=== PATIENT | female | born 1945 | race Caucasian/White ===

== ENCOUNTER 2022-09-27 08:40 | Inpatient (IN) | payer OTHER ==
[2022-09-27] MEDS ORDERED: ACETAMINOPHEN 1000 MG/100 ML BAG IVPB ONE (09:40)
[2022-09-27] MEDS ORDERED: ONDANSETRON 4 MG/2 ML VIAL IVPUSH ONE ×2 (09:41→21:06)
[2022-09-27] MEDS ORDERED: LACTATED RINGERS SOLUTION 1000 ML INFUS.BAG IV ONE (09:46)
[2022-09-27] MEDS ORDERED: ACETAMINOPHEN INJECTION 100 ML IVPB ONE (10:02)
[2022-09-27] MEDS ORDERED: ONDANSETRON 4 MG/2 ML VIAL ONE (10:02)
[2022-09-27 11:09] LABS: BASO % 0.4 % (0-2.0); EOS % 0.2 % (0-4.5); HEMATOCRIT 39.9 % (32.4-45.2); HEMOGLOBIN 13.5 GM/dL (10.7-15.3); LYMPH % 21.9 % (8-40); MCH 28.7 pg (25.7-33.7); MCHC 33.8 g/dl (32.0-36.0); MEAN CELL VOLUME 84.8 fl (80-96); MEAN PLT VOLUME 10.1 fl (7.5-11.1); MONO % 4.2 % (3.8-10.2); NEUT % 73.3 % (42.8-82.8); PLATELET COUNT 204 10^3/uL (134-434); RBC 4.71 M/mm3 (3.60-5.2); RDW 16.1 % (11.6-15.6); WHITE BLOOD COUNT 8.9 K/mm3 (4.0-10.0)
[2022-09-27 11:31] LABS: POTASSIUM 4.5 mmol/L (3.5-5.1)
[2022-09-27 11:33] LABS: ALBUMIN 3.4 g/dl (3.4-5.0); BLOOD UREA NITROGEN 14.3 mg/dL (7-18); CALCIUM 10.3 mg/dL (8.5-10.1); MAGNESIUM 1.8 mg/dL (1.8-2.4)
[2022-09-27 11:37] LABS: BILIRUBIN,TOTAL 0.5 mg/dL (0.2-1); CREATININE 0.9 mg/dL (0.55-1.3); PHOSPHOROUS 4.2 mg/dL (2.5-4.9); TOT PROT 7.2 g/dl (6.4-8.2)
[2022-09-27 13:16] LABS: EPI CELLS >36 /uL (0-25.1); HYALINE CASTS 1 /uL (0-3.1); PH,URINE 5.5 (5.0-8.0); URINE APPEARANCE CLOUDY; URINE BACTERIA 646 /uL (0-1359); URINE BILIRUBIN NEGATIVE (NEGATIVE); URINE COLOR YELLOW; URINE GLUCOSE (UA) 3+ (NEGATIVE); URINE KETONE TRACE (NEGATIVE); URINE LEUK ESTERASE 2+ (NEGATIVE); URINE NITRITE NEGATIVE (NEGATIVE); URINE PROTEIN TRACE (NEGATIVE); URINE UROBILINOGEN 0.2 mg/dL (0.2-1.0); URINE WBC 2659 /uL (0-25.8)
[2022-09-27] MEDS ORDERED: CEFTRIAXONE 1,000 MG in DEXTROSE 5%-WATER - 50 ML IVPB ONE (13:51)
[2022-09-27] MEDS ORDERED: CEFTRIAXONE 1 GM/50 ML BAG ONE (14:03)
[2022-09-27 20:38] VITALS: BMI 25.8
[2022-09-27] MEDS: APIXABAN 5 MG TABLET PO SCH (21:10)
[2022-09-27] MEDS: INSULIN SLIDING SCALE (NOVOLOG) 1 VIAL SQ SCH (21:16)
[2022-09-27] MEDS ORDERED: HEPARIN NA (PORCINE) 5,000 UNITS/ML 1ML VIAL SQ SCH (22:00)
[2022-09-27] MEDS ORDERED: ATORVASTATIN CA 20 MG TABLET (FP) PO SCH (22:00)
[2022-09-28] MEDS: INSULIN SLIDING SCALE (NOVOLOG) 1 VIAL SQ SCH ×4 (06:17→21:24)
[2022-09-28 08:04] LABS: BASO % 0.3 % (0-2.0); EOS % 0.8 % (0-4.5); HEMATOCRIT 37.1 % (32.4-45.2); HEMOGLOBIN 12.5 GM/dL (10.7-15.3); LYMPH % 36.2 % (8-40); MCH 28.5 pg (25.7-33.7); MCHC 33.7 g/dl (32.0-36.0); MEAN CELL VOLUME 84.7 fl (80-96); MEAN PLT VOLUME 9.7 fl (7.5-11.1); MONO % 5.8 % (3.8-10.2); NEUT % 56.9 % (42.8-82.8); PLATELET COUNT 193 10^3/uL (134-434); RBC 4.38 M/mm3 (3.60-5.2); RDW 15.5 % (11.6-15.6); WHITE BLOOD COUNT 9.1 K/mm3 (4.0-10.0)
[2022-09-28 08:14] LABS: POTASSIUM 4.2 mmol/L (3.5-5.1)
[2022-09-28 08:24] LABS: BILIRUBIN,TOTAL 0.6 mg/dL (0.2-1)
[2022-09-28 08:27] LABS: ALBUMIN 2.9 g/dl (3.4-5.0); BLOOD UREA NITROGEN 15.1 mg/dL (7-18); CREATININE 0.9 mg/dL (0.55-1.3)
[2022-09-28 08:28] LABS: CALCIUM 9.5 mg/dL (8.5-10.1); MAGNESIUM 1.9 mg/dL (1.8-2.4)
[2022-09-28] MEDS: RAMIPRIL 5 MG CAPSULE PO SCH (09:19)
[2022-09-28] MEDS: CEFTRIAXONE 1 GM in DEXTROSE 5%-WATER - 50 ML IVPB SCH (09:19)
[2022-09-28] MEDS: APIXABAN 5 MG TABLET PO SCH ×2 (09:19→21:17)
[2022-09-28] MEDS ORDERED: metoPROLOL SUCCINATE 25 MG TAB.SR.24H (FP) PO SCH ×3 (10:00→18:15)
[2022-09-28] MEDS ORDERED: INSULIN (NOVOLOG) ASPART 100 UNITS/ML 10ML VIAL ONE ×2 (12:12→21:23)
[2022-09-28] MEDS ORDERED: ONDANSETRON 4 MG/2 ML VIAL IVPUSH ONE (18:01)
[2022-09-28] MEDS ORDERED: DIGOXIN 0.25 MG TABLET PO ONE (18:16)
[2022-09-28] MEDS: ASPIRIN 81 MG CHEWABLE TABLETS PO SCH (20:35)
[2022-09-28] MEDS: ATORVASTATIN CA 40 MG TABLET (FP) PO SCH (21:18)
[2022-09-29] MEDS: INSULIN SLIDING SCALE (NOVOLOG) 1 VIAL SQ SCH ×5 (06:03→21:43)
[2022-09-29] MEDS ORDERED: INSULIN (NOVOLOG) ASPART 100 UNITS/ML 10ML VIAL ONE ×2 (06:25→21:11)
[2022-09-29] MEDS: RAMIPRIL 5 MG CAPSULE PO SCH (09:06)
[2022-09-29] MEDS: ASPIRIN 81 MG CHEWABLE TABLETS PO SCH (09:06)
[2022-09-29] MEDS: APIXABAN 5 MG TABLET PO SCH ×2 (09:06→21:43)
[2022-09-29] MEDS: METOPROLOL SUCCINATE 50 MG, METOPROLOL SUCCINATE 25 MG PO SCH (09:07)
[2022-09-29] MEDS: CEFTRIAXONE 1 GM in DEXTROSE 5%-WATER - 50 ML IVPB SCH (09:07)
[2022-09-29] MEDS: ATORVASTATIN CA 40 MG TABLET (FP) PO SCH (21:43)
[2022-09-30] MEDS ORDERED: INSULIN (NOVOLOG) ASPART 100 UNITS/ML 10ML VIAL ONE ×2 (06:13→21:42)
[2022-09-30] MEDS: INSULIN SLIDING SCALE (NOVOLOG) 1 VIAL SQ SCH ×4 (06:17→21:44)
[2022-09-30] MEDS ORDERED: PATIENT'S OWN MEDICATION (NON-FORMULARY) (Sitagliptin Phos/Metformin Hcl [Janumet 50-1,000 PO SCH (09:00)
[2022-09-30] MEDS: METOPROLOL SUCCINATE 50 MG, METOPROLOL SUCCINATE 25 MG PO SCH (09:06)
[2022-09-30] MEDS: RAMIPRIL 5 MG CAPSULE PO SCH (09:06)
[2022-09-30] MEDS: APIXABAN 5 MG TABLET PO SCH ×2 (09:06→21:44)
[2022-09-30] MEDS: ASPIRIN 81 MG CHEWABLE TABLETS PO SCH (09:06)
[2022-09-30] MEDS: CEFTRIAXONE 1 GM in DEXTROSE 5%-WATER - 50 ML IVPB SCH (09:06)
[2022-09-30] MEDS ORDERED: LISINOPRIL 5 MG TABLET PO SCH ×2 (10:00)
[2022-09-30] MEDS ORDERED: PATIENT'S OWN MEDICATION (NON-FORMULARY) (Dapagliflozin Propanediol 10 MG Tablet) PO SCH (10:00)
[2022-09-30] MEDS: AMOX TR/POT CLAV 500MG/125MG TABLETS (FP) PO SCH (17:15)
[2022-09-30] MEDS: ATORVASTATIN CA 40 MG TABLET (FP) PO SCH (21:44)
[2022-10-01 02:55] VITALS: RESP 18
[2022-10-01] MEDS ORDERED: INSULIN (NOVOLOG) ASPART 100 UNITS/ML 10ML VIAL ONE ×2 (06:10→11:45)
[2022-10-01] MEDS: INSULIN SLIDING SCALE (NOVOLOG) 1 VIAL SQ SCH ×2 (06:11→11:45)
[2022-10-01 08:44] VITALS: BP 111/65; PULSE 87; TEMP 97.8
[2022-10-01] MEDS: AMOX TR/POT CLAV 500MG/125MG TABLETS (FP) PO SCH (08:52)
[2022-10-01] MEDS: APIXABAN 5 MG TABLET PO SCH (09:23)
[2022-10-01] MEDS: RAMIPRIL 5 MG CAPSULE PO SCH (09:23)
[2022-10-01] MEDS: ASPIRIN 81 MG CHEWABLE TABLETS PO SCH (09:23)
[2022-10-01] MEDS: METOPROLOL SUCCINATE 50 MG, METOPROLOL SUCCINATE 25 MG PO SCH (09:23)
[2022-10-01] MEDS ORDERED: NICOTINE 14 MG/24 HOURS TOPICAL PATCH TD SCH (11:45)
== END 2022-10-01 12:13 | DRG 689 ==
LOC: JER 08:40 → JERBED 17:00 → J4W 18:32
PROVIDERS: ADMIT Internal Medicine; ATTEND Internal Medicine
DX: N39.0 Urinary tract infection, site not specified (principal); G92.8 Other toxic encephalopathy; I63.9 Cerebral infarction, unspecified; I48.19 Other persistent atrial fibrillation; I10 Essential (primary) hypertension; E78.5 Hyperlipidemia, unspecified; F17.210 Nicotine dependence, cigarettes, uncomplicated; I45.10 Unspecified right bundle-branch block; Z79.84 Long term (current) use of oral hypoglycemic drugs; R27.0 Ataxia, unspecified; E11.42 Type 2 diabetes mellitus with diabetic polyneuropathy; E11.51 Type 2 diabetes mellitus with diabetic peripheral angiopathy without gangrene
CPT/HCPCS: 0241U-QW; 36415; 70450-TC; 70551-TC; 71045-TC-FY; 71275-TC; 74174-TC; 80053; 80061; 81003; 82962; 83036; 83735; 84100; 84146; 84443; 84484; 85025; 87086; 87186; 93005; 93010; 93306-TC; 93880-TC; 97116-GP; 97162-GP; 99285-25

== ENCOUNTER 2023-08-21 10:40 | Day surgery (SDC) | payer OTHER ==
[2023-08-21] MEDS: FERRIC CARBOXYMALTOSE 750 MG in SODIUM CHLORIDE 250 ML IVPB SCH (11:45)
[2023-08-21 12:49] VITALS: BP 115/68; PULSE 80; RESP 16; TEMP 98.1
== END 2023-08-21 12:35 | disposition home or self-care (01) ==
LOC: FINFUSION 10:40 → FM/S 10:43 → FINFUSION 12:35
PROVIDERS: ATTEND Family Medicine
PROC: 3E033GC Introduction of Other Therapeutic Substance into Peripheral Vein, Percutaneous Approach (ICD-10-PCS; principal; 2023-08-21)
DX: D50.9 Iron deficiency anemia, unspecified (principal)
CPT/HCPCS: 96365; J1439

== ENCOUNTER 2023-08-28 10:20 | Day surgery (SDC) | payer OTHER ==
[2023-08-28] MEDS: FERRIC CARBOXYMALTOSE 750 MG in SODIUM CHLORIDE 250 ML IVPB SCH (11:20)
[2023-08-28 13:49] VITALS: BP 110/70; PULSE 67; RESP 18; TEMP 98.1
== END 2023-08-28 12:15 | disposition home or self-care (01) ==
LOC: FINFUSION 10:20 → FM/S 10:21 → FINFUSION 12:15
PROVIDERS: ATTEND Family Medicine
PROC: 3E033GC Introduction of Other Therapeutic Substance into Peripheral Vein, Percutaneous Approach (ICD-10-PCS; principal; 2023-08-28)
DX: F50.9 Eating disorder, unspecified (principal)
CPT/HCPCS: 96365; J1439

== ENCOUNTER 2024-06-24 21:31 | Inpatient (IN) | payer OTHER ==
[2024-06-24] MEDS ORDERED: ALBUTEROL SO4 2.5/IPRATROPIUM 0.5 INH SOL 3 ML VIAL.NEB. NEB ONE (21:40)
[2024-06-24] MEDS: ALBUTEROL SO4 2.5/IPRATROPIUM 0.5 INH SOL 3 ML VIAL.NEB. NEB ONE (21:50)
[2024-06-24] MEDS ORDERED: methylPREDNISolone NA SUCC 125 MG/2 ML VIAL ONE (21:52)
[2024-06-24 21:55] LABS: VENOUS PCO2 52.4 mmHg (38-52); VENOUS PH 7.251 (7.310-7.410)
[2024-06-24] MEDS: methylPREDNISolone NA SUCC 125 MG/2 ML VIAL IVPUSH ONE (21:59)
[2024-06-24 22:02] LABS: VENOUS O2 SATURATION 18.6 % (70-80)
[2024-06-24 22:03] LABS: BASO % 0.7 % (0-2.0); EOS % 0.9 % (0-4.5); HEMATOCRIT 37.6 % (32.4-45.2); HEMOGLOBIN 11.9 GM/dL (10.7-15.3); LYMPH % 28.6 % (8-40); MCH 28.4 pg (25.7-33.7); MCHC 31.7 g/dl (32.0-36.0); MEAN CELL VOLUME 89.6 fl (80-96); MEAN PLT VOLUME 9.8 fl (7.5-11.1); MONO % 6.3 % (3.8-10.2); NEUT % 63.5 % (42.8-82.8); PLATELET COUNT 204 10^3/uL (134-434); RDW 17.4 % (11.6-15.6); WHITE BLOOD COUNT 11.2 K/mm3 (4.0-10.0)
[2024-06-24 22:07] LABS: INR 1.22 (0.83-1.09); PROTHROMBIN TIME (PATIENT) 13.4 SEC (9.7-13.0)
[2024-06-24 22:23] LABS: POTASSIUM 4.4 mmol/L (3.5-5.1)
[2024-06-24 22:25] LABS: CALCIUM 8.8 mg/dL (8.5-10.1)
[2024-06-24 22:26] LABS: ALBUMIN 3.6 g/dl (3.4-5.0); BLOOD UREA NITROGEN 23.2 mg/dL (7-18); MAGNESIUM 1.9 mg/dL (1.8-2.4)
[2024-06-24 22:29] LABS: CREATININE 1.3 mg/dL (0.55-1.3)
[2024-06-24 22:30] LABS: BILIRUBIN,TOTAL 0.9 mg/dL (0.2-1)
[2024-06-24 22:31] LABS: TOT PROT 7.6 g/dl (6.4-8.2)
[2024-06-24 22:34] LABS: N-TERMINAL BNP 4999.9 pg/ml (5-450)
[2024-06-24] MEDS ORDERED: FUROSEMIDE 40 MG/4 ML INJECTABLE VIAL ONE (22:48)
[2024-06-24] MEDS: FUROSEMIDE 40 MG/4 ML INJECTABLE VIAL IVPUSH ONE (23:08)
[2024-06-25] MEDS ORDERED: DOCUSATE SODIUM 100 MG CAPSULE (FP) PO PRN (01:57)
[2024-06-25] MEDS ORDERED: ACETAMINOPHEN 325 MG TABLET (FP) PO PRN (01:57)
[2024-06-25 03:54] LABS: BASO % 0.1 % (0-2.0); HEMATOCRIT 35.2 % (32.4-45.2); HEMOGLOBIN 11.5 GM/dL (10.7-15.3); LYMPH % 18.2 % (8-40); MCH 28.8 pg (25.7-33.7); MCHC 32.6 g/dl (32.0-36.0); MEAN CELL VOLUME 88.2 fl (80-96); MONO % 1.5 % (3.8-10.2); NEUT % 80.2 % (42.8-82.8); PLATELET COUNT 156 10^3/uL (134-434); RBC 3.99 M/mm3 (3.60-5.2); RDW 17.2 % (11.6-15.6); WHITE BLOOD COUNT 7.6 K/mm3 (4.0-10.0)
[2024-06-25 04:18] LABS: POTASSIUM 4.5 mmol/L (3.5-5.1)
[2024-06-25 04:21] LABS: CALCIUM 9.1 mg/dL (8.5-10.1)
[2024-06-25 04:22] LABS: BLOOD UREA NITROGEN 26.3 mg/dL (7-18)
[2024-06-25 04:25] LABS: CREATININE 1.5 mg/dL (0.55-1.3)
[2024-06-25] MEDS ORDERED: APIXABAN 5 MG TABLET ONE (09:08)
[2024-06-25] MEDS ORDERED: metoPROLOL SUCCINATE 25 MG TAB.SR.24H (FP) PO ONE (09:09)
[2024-06-25] MEDS ORDERED: ASPIRIN 81 MG CHEWABLE TABLETS ONE (09:09)
[2024-06-25] MEDS ORDERED: NICOTINE 14 MG/24 HOURS TOPICAL PATCH TD ONE (09:09)
[2024-06-25] MEDS ORDERED: CEFTRIAXONE 1 G/50 ML PREMIX 50 ML IVPB ONE (09:09)
[2024-06-25] MEDS: APIXABAN 5 MG TABLET PO SCH (10:12)
[2024-06-25] MEDS: ASPIRIN 81 MG CHEWABLE TABLETS PO SCH (10:12)
[2024-06-25] MEDS: CEFTRIAXONE 1 G/50 ML PREMIX 50 ML IVPB SCH (10:12)
[2024-06-25] MEDS: NICOTINE 14 MG/24 HOURS TOPICAL PATCH TD SCH (10:13)
[2024-06-25] MEDS: metoPROLOL SUCCINATE 25 MG TAB.SR.24H (FP) PO SCH (10:13)
[2024-06-25] MEDS ORDERED: ALBUTEROL SO4 2.5/IPRATROPIUM 0.5 INH SOL 3 ML VIAL.NEB. NEB PRN (12:23)
[2024-06-25] MEDS ORDERED: FUROSEMIDE 40 MG/4 ML INJECTABLE VIAL ONE (14:46)
[2024-06-25] MEDS: FUROSEMIDE 40 MG/4 ML INJECTABLE VIAL IVPUSH SCH (14:56)
[2024-06-26] MEDS ORDERED: APIXABAN 5 MG TABLET ONE (00:23)
[2024-06-26] MEDS ORDERED: ATORVASTATIN CA 40 MG TABLET (FP) ONE (00:23)
[2024-06-26] MEDS: ATORVASTATIN CA 40 MG TABLET (FP) PO SCH (00:28)
[2024-06-26 01:19] VITALS: BMI 28.1
[2024-06-27] MEDS: INSULIN ASPART SLIDING SCALE (NOVOLOG) 1 VIAL SQ SCH (06:14)
[2024-06-27 08:36] LABS: BASO % 0.3 % (0-2.0); EOS % 1.1 % (0-4.5); LYMPH % 41.5 % (8-40); MCH 28.7 pg (25.7-33.7); MCHC 32.4 g/dl (32.0-36.0); MEAN CELL VOLUME 88.6 fl (80-96); MEAN PLT VOLUME 9.6 fl (7.5-11.1); MONO % 6.1 % (3.8-10.2); PLATELET COUNT 170 10^3/uL (134-434); RBC 3.83 M/mm3 (3.60-5.2); RDW 17.1 % (11.6-15.6); WHITE BLOOD COUNT 9.2 K/mm3 (4.0-10.0)
[2024-06-27 08:50] LABS: POTASSIUM 3.8 mmol/L (3.5-5.1)
[2024-06-27 08:58] LABS: ALBUMIN 3.1 g/dl (3.4-5.0); BLOOD UREA NITROGEN 39.1 mg/dL (7-18)
[2024-06-27 09:02] LABS: CREATININE 1.3 mg/dL (0.55-1.3)
[2024-06-27 09:03] LABS: BILIRUBIN,TOTAL 0.6 mg/dL (0.2-1); TOT PROT 6.4 g/dl (6.4-8.2)
[2024-06-27] MEDS: EMPAGLIFLOZIN (JARDIANCE) 25 MG TABLET PO SCH (09:50)
[2024-06-27] MEDS: FUROSEMIDE 40 MG/4 ML INJECTABLE VIAL IVPUSH SCH (09:51)
[2024-06-27] MEDS ORDERED: EMPAGLIFLOZIN (JARDIANCE) 10 MG TABLET PO SCH (10:00)
[2024-06-28 09:55] VITALS: BP 140/74; PULSE 85; RESP 18; TEMP 98.8
== END 2024-06-28 17:56 | disposition home or self-care (01) | DRG 189 ==
LOC: JER 21:31 → JERBED 23:52 → J4W 06-26 00:59 → JERBED 06-28 13:04 → J4W 06-28 13:05
PROVIDERS: ADMIT Student in an Organized Health Care Education/Training Program; ATTEND Family Medicine
DX: J96.01 Acute respiratory failure with hypoxia (principal); I50.33 Acute on chronic diastolic (congestive) heart failure; J98.11 Atelectasis; I48.19 Other persistent atrial fibrillation; E78.5 Hyperlipidemia, unspecified; E11.9 Type 2 diabetes mellitus without complications; Z79.01 Long term (current) use of anticoagulants; I11.0 Hypertensive heart disease with heart failure; J96.02 Acute respiratory failure with hypercapnia
CPT/HCPCS: 0241U-QW; 36415; 71045-TC-FY; 71046-TC-FY; 71275-TC; 80048; 80053; 82803; 82962; 83605; 83735; 83880; 84484; 85025; 85610; 85730; 86850; 86900; 86901; 87040; 87899; 93005; 93010; 94660; 94761; 99291

== ENCOUNTER 2024-10-11 10:38 | Inpatient (IN) | payer OTHER ==
[2024-10-11] MEDS: SODIUM CHLORIDE 1,000 ML IV STA (11:57)
[2024-10-11 12:02] LABS: ABSOLUTE IMMATURE GRANULOCYTES 0.02 x10^3/uL (0.0-0.031); BASOPHILS # 0.05 x10^3/uL (0.01-0.08); EOSINOPHIL % 1.3 % (0.7-5.8); EOSINOPHILS # 0.11 x10^3/uL (0.04-0.36); HEMATOCRIT 38.7 % (34.1-44.9); HEMOGLOBIN 11.5 g/dL (11.2-15.7); MCHC 29.7 g/dl (32.2-35.5); MEAN CELL VOLUME 92.6 fl (79.4-94.8); MEAN PLT VOLUME 11.2 fl (9.4-12.3); MONOCYTE # 0.58 x10^3/uL (0.24-0.86); MONOCYTE % 6.8 % (4.7-12.5); PLATELET COUNT 167 x10^3/uL (182-369); RDW 16.7 % (12.4-16.6)
[2024-10-11 12:05] LABS: EPI CELLS >36 /uL (0-25.1); HYALINE CASTS 1 /uL (0-3.1); URINE APPEARANCE CLOUDY; URINE BACTERIA 226 /uL (0-1359); URINE BILIRUBIN NEGATIVE (NEGATIVE); URINE COLOR YELLOW; URINE GLUCOSE (UA) 3+ (NEGATIVE); URINE KETONE NEGATIVE (NEGATIVE); URINE LEUK ESTERASE 2+ (NEGATIVE); URINE NITRITE NEGATIVE (NEGATIVE); URINE PROTEIN 1+ (NEGATIVE); URINE UROBILINOGEN 0.2 mg/dL (0.2-1.0); URINE WBC 275 /uL (0-25.8)
[2024-10-11 12:22] LABS: POTASSIUM 4.4 mmol/L (3.5-5.1)
[2024-10-11 12:23] LABS: CALCIUM 9.2 mg/dL (8.5-10.1)
[2024-10-11 12:24] LABS: ALBUMIN 3.6 g/dl (3.4-5.0); BLOOD UREA NITROGEN 49.8 mg/dL (7-18)
[2024-10-11 12:26] LABS: MAGNESIUM 1.8 mg/dL (1.8-2.4)
[2024-10-11 12:29] LABS: BILIRUBIN,TOTAL 0.4 mg/dL (0.2-1); TOT PROT 7.2 g/dl (6.4-8.2)
[2024-10-11 12:52] LABS: URINE RBC 32 /uL (0-23.9)
[2024-10-11 12:53] LABS: YEAST NONE SEEN (NEGATIVE)
[2024-10-11] MEDS: SODIUM CHLORIDE 500 ML IV STA (13:21)
[2024-10-11 18:08] VITALS: BMI 27.7
[2024-10-11] MEDS: APIXABAN 5 MG TABLET PO SCH (21:48)
[2024-10-11] MEDS: SODIUM CHLORIDE 0.45% 1,000 ML IV SCH (21:48)
[2024-10-11] MEDS: ATORVASTATIN CA 40 MG TABLET (FP) PO SCH (21:48)
[2024-10-11] MEDS: INSULIN ASPART SLIDING SCALE (NOVOLOG) 1 VIAL SQ SCH (21:53)
[2024-10-12 09:23] LABS: ABSOLUTE IMMATURE GRANULOCYTES 0.03 x10^3/uL (0.0-0.031); BASOPHILS # 0.01 x10^3/uL (0.01-0.08); HEMATOCRIT 34.2 % (34.1-44.9); HEMOGLOBIN 10.3 g/dL (11.2-15.7); MCHC 30.1 g/dl (32.2-35.5); MEAN PLT VOLUME 11.3 fl (9.4-12.3); MONOCYTE % 5.3 % (4.7-12.5); PLATELET COUNT 150 x10^3/uL (182-369); RDW 16.3 % (12.4-16.6)
[2024-10-12 09:38] LABS: POTASSIUM 4.7 mmol/L (3.5-5.1)
[2024-10-12 09:52] LABS: ALBUMIN 3.2 g/dl (3.4-5.0); CALCIUM 9.4 mg/dL (8.5-10.1)
[2024-10-12 09:55] LABS: CREATININE 3.8 mg/dL (0.55-1.3)
[2024-10-12 09:56] LABS: BILIRUBIN,TOTAL 0.5 mg/dL (0.2-1); BLOOD UREA NITROGEN 51.4 mg/dL (7-18); MAGNESIUM 1.5 mg/dL (1.8-2.4); TOT PROT 6.4 g/dl (6.4-8.2)
[2024-10-13 08:02] LABS: ABSOLUTE IMMATURE GRANULOCYTES 0.02 x10^3/uL (0.0-0.031); BASOPHILS # 0.02 x10^3/uL (0.01-0.08); EOSINOPHILS # 0.07 x10^3/uL (0.04-0.36); HEMATOCRIT 29.5 % (34.1-44.9); HEMOGLOBIN 9.3 g/dL (11.2-15.7); MCHC 31.5 g/dl (32.2-35.5); MEAN CELL VOLUME 89.1 fl (79.4-94.8); MONOCYTE # 0.47 x10^3/uL (0.24-0.86); MONOCYTE % 6.8 % (4.7-12.5); PLATELET COUNT 110 x10^3/uL (182-369); RDW 16.2 % (12.4-16.6)
[2024-10-13 08:35] LABS: CALCIUM 8.4 mg/dL (8.5-10.1)
[2024-10-13 08:36] LABS: ALBUMIN 2.7 g/dl (3.4-5.0)
[2024-10-13 08:39] LABS: CREATININE 3.5 mg/dL (0.55-1.3)
[2024-10-13 08:40] LABS: BILIRUBIN,TOTAL 0.6 mg/dL (0.2-1); TOT PROT 5.4 g/dl (6.4-8.2)
[2024-10-13 11:32] LABS: Reticulocyte % 2.06 % (0.5-1.7)
[2024-10-14 16:43] LABS: ABSOLUTE IMMATURE GRANULOCYTES 0.02 x10^3/uL (0.0-0.031); BASOPHILS # 0.03 x10^3/uL (0.01-0.08); EOSINOPHIL % 1.3 % (0.7-5.8); EOSINOPHILS # 0.09 x10^3/uL (0.04-0.36); HEMATOCRIT 30.1 % (34.1-44.9); HEMOGLOBIN 9.2 g/dL (11.2-15.7); MCHC 30.6 g/dl (32.2-35.5); MEAN CELL VOLUME 89.9 fl (79.4-94.8); MEAN PLT VOLUME 11.7 fl (9.4-12.3); MONOCYTE # 0.61 x10^3/uL (0.24-0.86); PLATELET COUNT 114 x10^3/uL (182-369); RDW 16.1 % (12.4-16.6)
[2024-10-14 17:10] LABS: POTASSIUM 4.2 mmol/L (3.5-5.1)
[2024-10-14 17:11] LABS: CALCIUM 8.6 mg/dL (8.5-10.1)
[2024-10-14 17:12] LABS: ALBUMIN 2.8 g/dl (3.4-5.0); BLOOD UREA NITROGEN 39.4 mg/dL (7-18)
[2024-10-14 17:15] LABS: CREATININE 2.7 mg/dL (0.55-1.3)
[2024-10-14 17:16] LABS: BILIRUBIN,TOTAL 0.3 mg/dL (0.2-1); TOT PROT 5.7 g/dl (6.4-8.2)
[2024-10-16 09:06] VITALS: BP 116/59; PULSE 72; RESP 16; TEMP 97.7
[2024-10-16 19:06] LABS: C-ANCA <1:20 titer (Neg:<1:20)
[2024-10-16 22:06] LABS: ANTIGLOMERULAR BASEMENT MEN.AB <0.2 units (0.0-0.9)
== END 2024-10-16 13:00 | disposition home or self-care (01) | DRG 684 ==
LOC: JER 10:38 → JERBED 14:20 → J5S 17:14
PROVIDERS: ADMIT Internal Medicine; ATTEND Internal Medicine
DX: N17.9 Acute kidney failure, unspecified (principal); E11.9 Type 2 diabetes mellitus without complications; E78.5 Hyperlipidemia, unspecified; I48.91 Unspecified atrial fibrillation; Z79.01 Long term (current) use of anticoagulants; I10 Essential (primary) hypertension; R19.7 Diarrhea, unspecified; D69.6 Thrombocytopenia, unspecified; D64.9 Anemia, unspecified; R22.1 Localized swelling, mass and lump, neck
CPT/HCPCS: 36415; 70490-TC; 71250-TC; 74176-TC; 76775-TC; 76856-TC; 80053; 81003; 82436; 82570; 82728; 82962; 83516; 83520; 83605; 83615; 83735; 84100; 84133; 84155; 84165; 84300; 84443; 85025; 86038; 86225; 86256; 87045; 87046; 87209; 87324; 87329; 87449; 93005; 93010; 99285-25

== ENCOUNTER 2025-02-25 23:22 | Emergency (ER) | payer OTHER ==
[2025-02-25 23:30] VITALS: TEMP 98.2; BMI 25.8
[2025-02-26 01:28] LABS: ABSOLUTE IMMATURE GRANULOCYTES 0.04 x10^3/uL (0.0-0.031); BASOPHILS # 0.04 x10^3/uL (0.01-0.08); EOSINOPHIL % 1.1 % (0.7-5.8); EOSINOPHILS # 0.10 x10^3/uL (0.04-0.36); MCHC 30.6 g/dl (32.2-35.5); MEAN CELL VOLUME 90.9 fl (79.4-94.8); MEAN PLT VOLUME 11.4 fl (9.4-12.3); MONOCYTE # 0.55 x10^3/uL (0.24-0.86); MONOCYTE % 6.3 % (4.7-12.5); RDW 15.6 % (12.4-16.6)
[2025-02-26 01:51] LABS: GLUCOSE,RANDOM 159.0 mg/dL (74-106); TOT PROT 6.7 g/dl (6.4-8.2)
[2025-02-26 01:52] LABS: CO2 22.0 mmol/L (21-32)
[2025-02-26 01:54] LABS: ALK PHOS 116.0 U/L (40-150)
[2025-02-26 01:56] LABS: SGOT/AST 18.0 U/L (5-34); SGPT/ALT 16.0 U/L (0-55)
[2025-02-26 01:57] LABS: CREATININE 2.2 mg/dL (0.55-1.3)
[2025-02-26 02:03] LABS: N-TERMINAL BNP 2819.5 pg/mL (0-299.9)
[2025-02-26 02:13] VITALS: BP 153/78; PULSE 61; RESP 16
== END 2025-02-26 02:27 | disposition home or self-care (01) ==
LOC: JER 23:22
DX: R05.9 Cough, unspecified (principal); R09.89 Other specified symptoms and signs involving the circulatory and respiratory systems; R06.02 Shortness of breath
CPT/HCPCS: 36415; 71045-TC-FY; 80053; 83735; 83880; 84484; 85025; 87637-QW; 93005; 93010; 99285-25